=== PATIENT | female | born 1955 | race Caucasian/White ===

== ENCOUNTER 2023-05-16 13:10 | Emergency (ER) | payer OTHER ==
[~2023-05-16] VITALS: Ht 167.6 cm; Wt 68.5 kg
--- OUTSIDE RECORDS SUMMARY | 2023-05-16 13:14 | XMS ---
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 Ceasar has no Care Guidelines for this patient. Daria VISIT COUNT (12 MO.) 1 EVY Godinez TOTAL 1 NOTE: Visits indicate total known visits. ED/C VISIT TRACKING (12 MO.) 05/16/2023 13:12 EVY Medrano OR TYPE: Emergency COMPLAINT: - FALL, R ARM INJURY INPATIENT VISIT TRACKING (12 MO.) No inpatient visits to display in this time frame [id number]
[2023-05-16] MEDS ORDERED: OMEPRAZOLE20 MG PO (18:31)
[2023-05-16] MEDS ORDERED: VENTOLIN HFA18 GM INH (18:31)
[2023-05-16] MEDS ORDERED: HYDROCODON-ACE1 EA10 PO (18:59)
[2023-05-16 19:17] VITALS: BP 130/68
== END 2023-05-16 19:18 | disposition home or self-care (01) ==
LOC: ED 13:10
DX: S52.124A Nondisplaced fracture of head of right radius, initial encounter for closed fracture (principal); W18.30XA Fall on same level, unspecified, initial encounter
CPT/HCPCS: 29105; 73080; 73110; 99283-25; A9270